=== PATIENT | female | born 1965 | race Caucasian/White ===

== ENCOUNTER 2017-02-26 14:06 | Emergency (ER) | payer OTHER ==
[~2017-02-26] VITALS: Ht 170.2 cm; Wt 65.8 kg
[~2017-02-26 14:06] MED LIST: AMITRIPTYLINE H25 MG PO; DIAZEPAM5 MG PO; ESTER C 500 MG-1 TAB PO; OMEGA-31000 MG PO; OXYCODONE HYDRO15 MG PO; PROBIOTIC FORMU1 CA1 PO; VITAMIN B COMPL1 CAP PO; VITAMIN D35000 IU PO
[2017-02-26 14:34] VITALS: BP 109/74
--- NOTE | 2017-02-26 14:37 | ED GENERAL ADULT ---
History of Present Illness General Chief Complaint: General Adult Stated Complaint: EXPOSURE Source: patient Exam Limitations: no limitations Vital Signs & Intake/Output Vital Signs & Intake/Output Vital Signs Date Time Temp Pulse Resp B/P B/P Pulse O2 O2 Flow FiO2 Mean Ox Delivery Rate 02/26 1434 98.4 88 18 109/74 98 Room Air Allergies Coded Allergies: latex (Mild, ITCHINESS 03/05/16) ceftriaxone (HIVES, FEVER, HOSPITALIZED 12/12/15) Reconcile Medications AMITRIPTYLINE HCL (Amitriptyline HCl) 25 MG TABLET 1 TAB PO QHS ARTHRITIS ( Reported) Ascorbic Acid/Bioflavonoid/C (Dinorah C 500 MG-200 MG-50 MG) (Unknown Strength) TAB 1 TAB PO DAILY SUPPLEMENT (Reported) Cholecalciferol (Vitamin D3) 5,000 IU CAP 1 CAP PO DAILY SUPPLEMENT (Reported ) Diazepam 5 MG TABLET 1-2 TAB PO QPM SLEEP/SPASMS (Reported) Inulin/Lactobacillus Sporoge (Probiotic Formula) 1 CAP CAP 1 CAP PO DAILY SUPPLEMENT (Reported) OMEGA-3 FATTY ACIDS/FISH OIL ([place] 3 1,000 MG Softgel) (Unknown Strength) CAPSULE 1 SGL PO DAILY SUPPLEMENT (Reported) Oxycodone Hydrochloride 15 MG TAB 1 TAB PO QPM PAIN (Reported) Vitamin B Complex 1 EACH CAPSULE 1 CAP PO DAILY SUPPLEMENT (Reported) Triage Note: PT WAS CLEANING A TRASH BIN IN OPERATING ROOM, AND ACCIDENTALLY STUCK LEFT THUMB WITH A CASEY BANDAGE FASTENER. PT WAS WEARING GLOVES. Triage Nurses Notes Reviewed? yes Onset: Just prior to arrival Duration: hour(s): (1) Timing: no prior history Injury Environment: work Severity: mild Severity Numbers: 1 No Modifying Factors: none HPI: Patient is a 51-year-old female unsure of tetanus immunization presenting to the emergency department with chief complaint of needle stick injury prior to arrival. Patient reports that she was cleaning up in and one of the case bandaged clips that his mental poked her left thumb. She bled for a few seconds and then it was controlled with pressure. Denies any pain currently. No numbness or tingling. Was told to come down by her cutting room supervisor for evaluation. Unsure of where the clip came from or if it was contaminated. No numbness or tingling. No history of any infectious disease. Past History Travel History Traveled to [place] past 21 day No Medical History Any Pertinent Medical History? see below for history Respiratory: NONE Musculoskeletal: osteoarthritis, acl TEAR LEFT KNEE, MENISCAL TEAR Blood Disorders: LYME DISEASE Tetanus Vaccine: 07/07/09 Surgical History Surgical History: LEFT KNEE acl RECONSTRUCTION , MENISCECTOMY, DEBRIDEMENT Psychosocial History What is your primary language Bengali Tobacco Use: Current Daily Use Daily Tobacco Use Amount/Type: Smokeless tobacco daily ETOH Use: occasional use Family History Hx Contributory? No Review of Systems Review of Systems Constitutional: Reports: no symptoms. Comments Review of systems: See HPI, All other systems negative. Constitutional, no chills fever or weight loss HEENT: No visual changes no sore throat no congestion Cardiovascular: No chest pain ,palpitation Skin, no jaundice no rashes Respiratory: No dyspnea cough GI: No nausea no vomiting Muscle skeletal: no back pain, no neck pain, Neurologic: No numbness Psych: No stress anxiety Immunology: No splenectomy or history of AIDS Physical Exam Physical Exam General Appearance: well developed/nourished, no apparent distress, alert, awake , comfortable Comments: Well-developed well-nourished no apparent distress. HEENT: Atraumatic, extraocular motion intact Neck: Supple, no lymphadenopathy Back: Nontender Respiratory: No respiratory distress Extremities: No edema, full range of motion, full range of motion of all digits on the upper extremities. Radial pulses are 2+ bilaterally. Skin: Skin over left thumb is nonerythematous, nontender. Unable to visualize any puncture wounds. No active bleeding. No surrounding erythema or edema. Neuro: Alert and oriented x3 Psych: Mood affect normal, normal memory normal judgment. Core Measures ACS in differential dx? No CVA/TIA Diagnosis: No Severe Sepsis Present: No Septic Shock Present: No Progress Differential Diagnoses I considered the following diagnoses in my evaluation of the patient: Needlestick exposure, blood exposure, postexposure prophylaxis, need for tetanus immunization Plan of Care: Orders Procedure Date/time Status HIV EXPOSURE/NEEDLESTICK 02/26 1438 Active HUMAN BETA HCG SCREEN 02/26 1438 Active HEPT C ANTIBODY 02/26 1438 Active HEPT B SURFACE ANTIBODY 02/26 1438 Active GAMMA GLUTAMYL TRANSFERASE 02/26 1438 Active COMPREHENSIVE METABOLIC PANEL 02/26 1438 Active CBC WITHOUT DIFFERENTIAL 02/26 1438 Active TRNSFRASE ASPART AMINO 02/26 1438 Active TRNSFRAS ALANINE AMINO 02/26 1438 Active Current Medications Sig/Fabiola Start time Last Medication Dose Stop Time Status Admin Tetanus/Diphtheria 0.5 ML ONCE ONE 02/26 1500 UNVr Toxoids Adsorbed 02/26 1501 (Decavac) Initial ED EKG: none Comments: Patient given IM tetanus. Prophylaxis for HIV not indicated at this time. pt will call tomorrow for blood test results. Up-to-date with other immunizations besides tenderness. Departure Departure Time of Disposition: 1450 Disposition: HOME OR SELF CARE Condition: Stable Clinical Impression Primary Impression: Needle stick injury Referrals: YARED FERNANDO,DENILSON Leigh (PCP/Family) Additional Instructions: Follow-up with primary care physician U will need repeat blood work in 4-6 weeks. Call for blood work results. Keep area clean and dry. Departure Forms: Customer Survey General Discharge Information Critical Care Note Critical Care Note Critical Care Time: non-applicable
[2017-02-26 15:13] LABS: ABSOLUTE BASOPHIL COUNT 0 /CUMM (0.0-0.2); ABSOLUTE EOSINOPHIL COUNT 0.2 /CUMM (0.0-0.7); ABSOLUTE GRANULOCYTE CT 3.2 /CUMM (1.4-6.5); ABSOLUTE LYMPH COUNT 2.1 /CUMM (1.2-3.4); ABSOLUTE MONOCYTE COUNT 0.7 /CUMM (0.10-0.60); BASOPHIL % 0.6 % (0.0-2.0); EOSINOPHIL % 3.2 % (0-5); GRANULOCYTE % 51.4 % (42.2-75.2); HEMATOCRIT 36.7 % (37-47); MEAN CORPUSCULAR HGB CONC 34.1 G/DL (33.0-37.0); MEAN CORPUSCULAR VOLUME 87.9 FL (81.0-99.0); MEAN PLATELET VOLUME 7.2 FL (7.4-10.4); PLATELET COUNT 288 /CUMM (130-400); RBC DISTRIBUTION WIDTH 12.7 % (11.5-14.5); RED BLOOD CELL CT 4.17 /CUMM (4.20-5.40); WHITE BLOOD CELL COUNT 6.3 /CUMM (4.8-10.8)
== END 2017-02-26 15:05 ==
LOC: ERH 14:06
PROVIDERS: Physician Assistant
DX: S61.032A Puncture wound without foreign body of left thumb without damage to nail, initial encounter (principal); W45.8XXA Other foreign body or object entering through skin, initial encounter; Y93.89 Activity, other specified; Y92.9 Unspecified place or not applicable
CPT/HCPCS: 86803; 87389; 90471

== ENCOUNTER 2017-10-18 14:26 | Emergency (ER) | payer OTHER ==
[~2017-10-18] VITALS: Ht 170.2 cm; Wt 65.8 kg
[2017-10-18 14:35] VITALS: BP 142/92
== END 2017-10-18 15:40 | disposition admitted as inpatient to this hospital (09) ==
LOC: ERH 14:26
DX: M54.2 Cervicalgia (principal); X50.0XXA Overexertion from strenuous movement or load, initial encounter

== ENCOUNTER → 2017-12-30 | Day surgery (SDC) | payer OTHER ==
[~2017-12-30] VITALS: Ht 170.2 cm; Wt 65.8 kg
[~2017-12-30] MED LIST changes: +AMITRIPTYLINE H25 M2 PO; -AMITRIPTYLINE H25 MG PO; +DIAZEPAM5 M1 PO; -DIAZEPAM5 MG PO; +DORYX PO; +OXYCODONE HCL E20 MG PO
--- NOTE | 2017-12-30 10:06 | Operative Report ---
Operative/Inv Procedure Report Surgery Date: 12/30/17 Name of Procedure: 1.C6/7 ACDF with 4webb interbody cage, synthes vectra anterior plate and screws, autograft, DBX 2.Exploration of C5/6 arthrodesis 3.use of intraop fluoroscopy Pre-Operative Diagnosis: C6/7 HNP with stenosis, kyphosis Post-Operative Diagnosis: same Estimated Blood Loss: less than 50ml Surgeon/Powder Worker Tnt: Merlyn FERNANDO,Dino Barnett MD Anesthesia: general endotracheal tube Monitors: neurophysiologic monioting IV Fluids: 1500cc crystalloid Implants: 4webb cage, vectra plate and screws Urine Output: via jolly Drains: med NAY Specimens: C6/7 disc material Complications: none Condition: stable Operative Indication: 52yo woman s/p prior C4/5, C5/6 ACDF now with progessive adjacent segment spondylosis, disc protrusion and prgressive central and foraminal stenosis with intractble symproms despite nonoperataive treatment now presents for anterior decompression and fusion C6/7, exploration of prior ACDF. Operative/Procedure Note Note: Patient was taken the operating room. After appropriate patient identification, neurophysiologic monitoring leads were placed and baseline recordings were obtained. The patient underwent an awake fiberoptic intubation with a Nims tube with the neck in a neutral position. Following intubation. Monitoring was stable. The patient was positioned supine on the operating table with the neck gently extended on a donut and the shoulders retracted downward with tape. Following positioning, monitoring was rechecked and noted to be stable. Patient was given 1 g of IV vanco and 4 mg of IV Decadron in preoperative prophylaxis. A Jolly catheter was sterilely inserted. DVT prophylaxis was utilized throughout the case. Prior surgery was through right anterior neck and preop laryngoscopy showed bilaterally mobile vocal cords. The left ventral neck was widely prepped and draped in usual sterile fashion using Hibiclens solution. A transverse linear skin incision was marked beginning in the midline and extending to the left a proximally 3 cm several fingerbreadths above the clavicle. The C-arm fluoroscope was sterilely draped in the field and we confirmed that the planned incision was overlying the C6 7 interspace. The skin was infiltrated with local anesthetic. Skin incision was made with a 10 blade knife dissection was carried down through the subcutaneous tissue with the Bovie to the platysma muscle. The platysma was elevated and divided. Subplatysmal planes were created rostrally and caudally to facilitate tissue mobilization. The medial aspect of the sternocleidomastoid muscle was identified. The overlying fascia was incised in a rostral caudal fashion. A combination of digital and blunt dissection was used medial to the sternocleidomastoid and lateral to the trachea and esophagus down to the prevertebral fascia. A large traversing external jugular vein was retracted laterally. The carotid sheath was identified and retracted laterally under hand -held retractor. The crossing omohyoid muscle was reflected rostrally. The prevertebral fascia was thickened with scar from the prior surgery. It was incised sharply and swept off the ventral aspect of the vertebral bodies with a peanut. Disc spaces were identified. A small gauge spinal needle was placed superficially within the disc space and a lateral localizing x-ray was obtained and confirmed this to be the correct level of C6/7. With the correct level verified, the disc space was marked with the Bovie and the longus coli muscles were reflected bilaterally. Self-retaining retractors were placed beneath the muscle. Once the retractors were in position, the endotracheal cuff was deflated and slowly reinflated against the retractors to minimize tracheal wall pressure. The interspace of C5/6 was inspected and the arthrodesis was confirmed to be solid with stable anterior hardware. An annulotomy of C6 7 was performed with a 15 blade knife and a superficial discectomy was done with small straight and angled curettes and pituitary rongeurs. The osteophytes were removed with a Leksell rongeur and the bone saved for subsequent arthrodesis to the back table. Jetmore pins were placed in the midpoint of the C6 and C7 vertebral bodies in the disc space was gently distracted under direct and fluoroscopic guidance. Following distraction of the disc space, neurophysiologic monitoring was rechecked and noted to be stable. Discectomy at C6 7 was completed using combination of small straight and angled curettes and pituitary rongeurs to the PLL. The posterior longitudinal ligament was sequentially divided and removed with a 2 mm Kerrison punch until an excellent decompression of the underlying thecal sac was accomplished from proximal foramen to proximal foramen. Once removal of all the disc material, the dural sac appeared nicely decompressed. Foraminotomies were performed bilat with kerrisons to ensure the C7 roots were well decompressed bilaterally. Once the decompression was completed, meticulous hemostasis was achieved using Surgifoam in the epidural space and a cottonoid idalia. All cartilaginous endplates were removed from C6 and C7 using combination of curettes and the Midas Koby drill to prepare them for arthrodesis. Following the decompression, neurophysiologic monitoring was rechecked and noted to be stable. We then proceeded to arthrodesis and placement of the instrumentation. Opry trials, a 7 mm 4webb cage was selected and provisionally placed in the disc space. A lateral fluoroscopic x-ray showed excellent position of the interbody cage and good fit. We then filled the cage with demineralized bone matrix and morselized autograft from the osteophytectomy and gently tamped the cage into the C6 7 disc space under direct and fluoroscopic guidance. Once the cage was in position, we proceeded with placement of the anterior plate and screws. The Jetmore retractor was released compressing the cage between the respective vertebral bodies in the Jetmore pins were removed. A small amount of bone bleeding was easily controlled with bone wax. A 12mm vectra plate was selected and provisionally placed with plate holding pin. The plate was then fixed to the C6 and C7 vertebral bodies by placing screws after piercing the bone with an awl and using self drilling, self tapping screws with 3 16mm screws and a single 14mm screw in the left C6 position to avoid prior instrumentation. The screws were finally tightened applying the locking mechanism at locations. Final AP and lateral x-rays were obtained and saved and showed excellent position of the interbody cage and instrumentation. The retractors were removed. Hand-held retractors were then placed back into the wound which was inspected and meticulous hemostasis is achieved prior to wound closure. A medium NAY drain was placed into the wound and secured to the skin with a 2-0 nylon suture. The platysma muscle was reapproximated with interrupted 3-0 Vicryl suture. Skin was closed in layers with interrupted 3-0 Vicryl suture in the dermis and a running 4-0 Vicryl subcutaneous stitch in the skin. The wound was cleaned and dried. Steri-Strips and a sterile occlusive dressing was placed. The patient was placed in a soft cervical collar. She was awakened in the operating room, extubated, and taken to PACU in stable condition. She was noted to be moving all 4 extremities at the completion of the case. All sponge needle and instrument counts are correct at the completion of procedure 3. Neurophysiologic monitoring was stable throughout the case. Findings: endplate spurring particularly off rostral C7 on the right with bilat foraminal stenosis Discharge Disposition: PACU
--- NOTE | 2017-12-30 10:13 | Operative Report ---
Operative/Inv Procedure Report Surgery Date: 12/30/17 Name of Procedure: C6 7 anterior cervical discectomy and fusion use of Synthes anterior plating system use of 4 web intervertebral biomechanical device use of autograft use of allograft use of fluoroscopic guidance C5 6 exploration of fusion Pre-Operative Diagnosis: Cervical spondylosis Post-Operative Diagnosis: Same Estimated Blood Loss: less than 50ml Surgeon/Topographical Engineer: Merlyn Owens MD,Megha Ledesma Anesthesia: general endotracheal tube Operative/Procedure Note Note: After the successful administration of general endotracheal anesthesia all lines tubes and monitors were placed by anesthesia team the patient positioned supine with head gently extended transverse rolls placed in her shoulders shoulders were taped down to facilitate radial graft exposure the anterior cervical spine. We used the fluoroscope to plan a skin incision the left anterior neck over the C6 7 disc space the patient was then prepped and draped in usual standard fashion, 10 mL of Marcaine was infiltrated subcutaneous tissues #15 blade was used used to incise the skin. This was deepened Bovie cautery through the platysma and a sharp dissection was carried down medial to the carotid sheath lateral to the trachea and esophagus. A lipless retractor was used to retract the esophagus and trachea medially the deep cervical fascia identified and divided a 6 spinal needles placed and C6 7 disc space and the fluoroscope was used to confirm the level. After levels confirmed we elevated longus coli bilaterally, where visualize the inferior aspect of the old C5 6 hardware this was far enough away we felt, We Could Place Bayfield pins and the plate. We then incised the annulus #11 blade I used Leksell rongeur to remove any anterior osteophytes the bodies of C6 and C7 this was saved for autograft. We placed [place] pins the bodies of C6 and C7 provided gentle in-line distraction perform a total discectomy at with combination of pituitaries curettes and Kerrison. We then used a high-speed drill to drill the posterior osteophytes saving the bone for autograft we elevated the PLL and resected with Kerrison punch. We were then able to visualize the thecal sac and the shoulders of the nerve root all neural structures were thoroughly decompressed as noted to CSF leak motors and sensors were stable. The cartilaginous and bony endplates remove the high-speed drill and curettes. We trialed a 7 mm spacer this the appropriate size space was prepacked morselized autograft and D was bone matrix putty impacted under fluoroscopic guidance motors and sensors were stable Bayfield pins removed and the holes waxed with bone wax. We then placed a 12 mm plate secured in place with 16 mm screws circumferentially except for the left-sided C6 pin this 60 mm was too long we then placed a 14 mm rescue pin and esophagus hitting the prior hardware. Under fluoroscopic guidance confirmed is no abnormal motion at C5 6 level. The intrinsic locking mechanisms were locked was copiously irrigated bacitracin irrigation through separate stab incision #7 round NAY drain was left was retraction removed and the wound was closed in layers using 30 Vicryls for the platysma and for deep dermis and skin was closed with a subcuticular 40. A dry sterile dressing applied at end the case all needle counts sponge and instrument correct the patient to recovery in stable condition.
--- NOTE | 2017-12-31 14:00 | RADIOLOGY REPORT ---
EXAMINATION: CR CERVICAL SPINE/INTRAOPERATIVE FLUOROSCOPY CLINICAL INDICATION: ACD with fusion C6-C7. COMPARISON: C-spine films dated 12/12/2017. TECHNIQUE/FINDINGS: Fluoroscopic equipment was dedicated to the operating room for the performance of an intraoperative procedure. Several (6) spot films were acquired and are archived in PACS. Please refer to operative notes for procedural detail. FLUOROSCOPY TIME: 0.1 minutes. IMPRESSION: Administrative dictation for intraoperative fluoroscopy and image archiving in PACS. Please refer to operative notes for details.
== END ==
LOC: STS 01:45
DX: M47.892 Other spondylosis, cervical region (principal); M50.123 Cervical disc disorder at C6-C7 level with radiculopathy; M40.209 Unspecified kyphosis, site unspecified; M43.22 Fusion of spine, cervical region
CPT/HCPCS: 72040; 87086; C1713; C9399; J0131; J2250; J3370; J7040; J7060

== ENCOUNTER 2018-04-05 13:22 | Emergency (ER) | payer OTHER ==
[~2018-04-05] VITALS: Ht 170.2 cm; Wt 59.9 kg
--- NOTE | 2018-04-05 13:23 | ED CARDIAC/CP/PALPITATIONS ---
History of Present Illness General Chief Complaint: Chest Pain Stated Complaint: BIBA FOR CP Source: patient, old records Exam Limitations: no limitations Vital Signs & Intake/Output Vital Signs & Intake/Output Vital Signs Date Time Temp Pulse Resp B/P B/P Pulse O2 O2 Flow FiO2 Mean Ox Delivery Rate 04/05 1808 98.7 04/05 1720 92 110/74 04/05 1720 92 16 110/74 99 Room Air 04/05 1609 90 16 112/74 99 Room Air 04/05 1407 Room Air 04/05 1340 98.4 129 16 133/90 100 Room Air Allergies Coded Allergies: latex (Mild, ITCHINESS 03/05/16) ceftriaxone (HIVES, FEVER, HOSPITALIZED 12/12/15) hydromorphone (From DILAUDID) (NAUSEA vomiting 12/26/17) Reconcile Medications Amitriptyline HCl 25 MG TABLET 1 TAB PO QHS ARTHRITIS (Reported) Cider Vinegar (Apple Cider Vinegar) (Unknown Strength) TABLET (Unknown Dose) PO DAILY SUPPLEMENT (Reported) Cyanocobalamin (Vitamin B-12) (Unknown Strength) TABLET (Unknown Dose) PO DAILY SUPPLEMENT (Reported) Flaxseed Oil (Flax Oil) (Unknown Strength) CAPSULE (Unknown Dose) PO DAILY SUPPLEMENT (Reported) Magnesium Oxide (Magnesium) (Unknown Strength) CAPSULE (Unknown Dose) PO DAILY SUPPLEMENT (Reported) [place] Extract (Unknown Strength) CAPSULE (Unknown Dose) PO DAILY SUPPLEMENT (Reported) Oxycodone HCl 15 MG TABLET 1 TAB PO Q6H PRN PAIN (Reported) Triage Nurses Notes Reviewed? yes HPI: 52F PMH cervical spinal fusion surgery in December 2017, left leg vascular procedure (unknown) presenting with multiple complaints. For the past several weeks has felt fatigued and weak. For the past week she feels generally ill and toxic. She notes left leg paresthesias that have been constant for a week or two that worsening when she presses on her LLQ. Today, she went for a walk and felt well. After, she had sudden sharp left sided chest pain radiating to the left arm associated with palpitations and a sense of panic. She has no cardiac history. She denies smoking, fever, chills, headache, sore throat, vision changes, SOB, abdominal pain, diarrhea, dysuria. Her strength and gait are intact. Past History Travel History Traveled to [place] past 21 day No Medical History Any Pertinent Medical History? see below for history Neurological: NONE EENT: NONE Cardiovascular: NONE Respiratory: NONE Gastrointestinal: NONE Hepatic: NONE Renal: NONE Musculoskeletal: osteoarthritis, acl TEAR LEFT KNEE, MENISCAL TEAR Psychiatric: NONE Endocrine: NONE Blood Disorders: LYME DISEASE Tetanus Vaccine: 02/26/17 Surgical History Surgical History: LEFT KNEE acl RECONSTRUCTION , MENISCECTOMY, DEBRIDEMENT Psychosocial History What is your primary language Icelandic Family History Hx Contributory? No Review of Systems Review of Systems Constitutional: Reports: no symptoms. EENTM: Reports: no symptoms. Respiratory: Reports: no symptoms. Cardiovascular: Reports: no symptoms. GI: Reports: no symptoms. Genitourinary: Reports: no symptoms. Musculoskeletal: Reports: no symptoms. Skin: Reports: no symptoms. Neurological/Psychological: Reports: no symptoms. Hematologic/Endocrine: Reports: no symptoms. Immunologic/Allergic: Reports: no symptoms. All Other Systems: Reviewed and Negative Physical Exam Physical Exam General Appearance: well developed/nourished, no apparent distress, anxious Head: atraumatic, normal appearance Eyes: Bilateral: normal appearance. Ears, Nose, Throat: normal pharynx, hearing grossly normal Neck: normal inspection, supple, full range of motion Respiratory: normal breath sounds, no respiratory distress Cardiovascular: regular rate/rhythm Gastrointestinal: soft, non-tender Back: normal inspection, normal range of motion Extremities: normal inspection, normal range of motion Neurologic/Psych: no motor/sensory deficits, awake, alert, oriented x 3, normal mood/affect Skin: intact, normal color, warm/dry Core Measures ACS in differential dx? Yes No ASA d/t already taken CVA/TIA Diagnosis No Sepsis Present: No Sepsis Focused Exam Completed? No Progress Differential Diagnosis: AMI, aortic dissection, atrial fibrillation, cholecystitis, CHF/pulm edema, costochondritis, hyperkalemia, hypovolemia, hyperthyroid, hyperventilation, intracranial hemorrhage, musculoskeletal pain, myocarditis, pancreatitis, pericarditis, pneumonia, pneumothorax, PSVT, pulmonary embolism, PUD/GERD, PVCs/PACs, respiratory failure, rib fracture, sepsis, unstable angina, V-fib/V-Tach, WPW syndrome Plan of Care: Orders Procedure Date/time Status TROPONIN LEVEL 04/05 1730 Active EKG 04/05 1730 Active Add-on Test (ER Only) 04/05 1532 Active URINE 04/05 1355 Complete URINALYSIS 04/05 1323 Complete TROPONIN LEVEL 04/05 1323 Complete D-DIMER 04/05 1323 Complete COMPREHENSIVE METABOLIC PANEL 04/05 1323 Complete CBC WITHOUT DIFFERENTIAL 04/05 132 Complete EKG 04/05 1322 Active Laboratory Tests 04/05/18 1728: Troponin I Pending 04/05/18 1435: Anion Gap 10, Estimated GFR > 60, BUN/Creatinine Ratio 15.7, Glucose 111 H, Calcium 9.5, Total Bilirubin 0.3, AST 31, ALT 33, Alkaline Phosphatase 67, Troponin I < 0.01, Total Protein 6.7, Albumin 4.2, Globulin 2.5, Albumin/ Globulin Ratio 1.7, D-Dimer High Sensitivty < 200 04/05/18 1355: CBC w Diff NO MAN DIFF REQ, RBC 4.71, MCV 87.1, MCH 29.7, MCHC 34.1, RDW 13.2, MPV 7.9, Gran % 71.1, Lymphocytes % 19.0 L, Monocytes % 8.3, Eosinophils % 1.2, Basophils % 0.4, Absolute Granulocytes 4.8, Absolute Lymphocytes 1.3, Absolute Monocytes 0.6, Absolute Eosinophils 0.1, Absolute Basophils 0, Urine Color STRAW , Urine Clarity CLEAR, Urine pH 6.5, Ur Specific [place] <= 1.005, Urine Protein NEG, Urine Ketones NEG, Urine Nitrite NEG, Urine Bilirubin NEG, Urine Urobilinogen 0.2, Ur Leukocyte Esterase NEG, Ur Microscopic EXAM NOT REQUIRED, Urine Hemoglobin NEG, Urine Glucose NEG, Urine Test NEGATIVE Diagnostic Imaging: Viewed by Me: CT Scan. Discussed w/RAD: CT Scan. Radiology Impression: PATIENT: FELICE DAVIDSON PRESENT AGE: 52 PATIENT ACCOUNT NO: [id number] : 67 LOCATION: [facility] ORDERING PHYSICIAN: Suzy Hubbard MD SERVICE DATE: 04/05/18 EXAM TYPE : CAT - CT HEAD W IV CONTRAST EXAMINATION: CT HEAD WITH CONTRAST CLINICAL INFORMATION: History of brain cyst with new left lower extremity paresthesia COMPARISON: None TECHNIQUE: Contiguous axial imaging was performed from the skull base to vertex following the administration of 125 mL of Optiray 350 intravenous contrast. DLP: 620 mGy-cm FINDINGS: There is no evidence of acute intracranial hemorrhage or territorial infarction. No abnormal mass effect or midline shift is seen. Boyle to white matter differentiation is well preserved. No extra-axial fluid collections are identified. There is no abnormal enhancement. The ventricles are normal in size. There is no abnormal attenuation within the brain parenchyma. The osseous structures and soft tissues are normal. The mastoid air cells and visualized portions of the paranasal sinuses are well aerated. IMPRESSION: No acute intracranial findings. DICTATED BY: Shweta Peres MD DATE/TIME DICTATED:04/05/181749 SALES REPRESENTATIVE CONSULTANT:GIANCARLO DATE/TIME TRANSCRIBED:04/05/181749 CONFIDENTIAL, DO NOT COPY WITHOUT APPROPRIATE AUTHORIZATION. <Electronically signed in Other Vendor System> SIGNED BY: Shweta Peres MD 04/05/181756, PATIENT: FELICE DAVIDSON PRESENT AGE: 52 PATIENT ACCOUNT NO: [id number] : 67 LOCATION: [facility] ORDERING PHYSICIAN: Suzy Hubbard MD SERVICE DATE: 04/05/18 EXAM TYPE : CAT - CT RUNOFF ANGIOGRAM EXAMINATION: CT ANGIOGRAPHY WITH RUNOFF CLINICAL INFORMATION: Ischemic left leg with new paresthesias. COMPARISON: None TECHNIQUE : Volume acquisition CT of the abdomen, pelvis and bilateral lower extremities was performed both with and without IV contrast. For the contrast-enhanced portion of the exam a total of 125 mL of Optiray 350 was utilized. Images were evaluated on an independent dedicated 3-D workstation and 3-D images were reconstructed with concurrent radiologist supervision and subsequently interpreted. DLP: 753\H\ \N\mGy-cm FINDINGS: VASCULAR FINDINGS: Aorta and Its Branches: The visualized descending thoracic aorta appears normal. The abdominal aorta demonstrates some minimal plaquing distally but there is no stenosis, dissection or aneurysm seen. The celiac SMA and BRIAN are all widely patent. There are 2 renal arteries on the right and a single renal artery on the left which are patent. The common iliac arteries appear normal aside from some minimal calcific plaque on the right distally. No common iliac stenoses are present. The iliac bifurcations are patent. Both internal iliacs are widely patent. External iliac arteries are free of disease. RUNOFF: Right: The profunda femoris is widely patent. The SFA is widely patent. The popliteal artery appears normal. There is a high takeoff of the posterior tibial artery at the level of the knee joint. There is a common trunk to the anterior tibial and peroneal artery which appears normal. All 3 runoff vessels are widely patent to the foot. Left: The left profunda femoris is widely patent. The left SFA is widely patent. There is some minimal fusiform dilatation of the left popliteal artery which measures a maximum of about a centimeter in size. The trifurcation is patent and all 3 runoff vessels are widely patent to the foot. VENOUS: The IVC is of normal caliber not adequately opacified to comment upon. The iliac veins are of normal caliber. There is a single right renal vein present. There is a retroaortic left renal vein present. The portal venous system is only faintly opacified. The hepatic veins cannot be commented upon. NONVASCULAR FINDINGS: The lung bases appear normal without masses infiltrates or pleural effusions. The liver, gallbladder, bile ducts, pancreas and spleen are unremarkable. The adrenal glands appear normal. Both kidneys appear normal. No retroperitoneal adenopathy is seen. The bladder is unremarkable. A retroflexed uterus is present. No abnormal pelvic mass is seen. No bony destructive lesions are seen. The abdominal wall appears normal. IMPRESSION: Vascular supply to both lower extremities is not compromised in the least and appears rather unremarkable. A significant abnormality is not detected. DICTATED BY: Omar Valentine MD DATE/ TIME DICTATED:04/05/181734 SALES REPRESENTATIVE CONSULTANT:GIANCARLO DATE/TIME TRANSCRIBED: 04/05/181734 CONFIDENTIAL, DO NOT COPY WITHOUT APPROPRIATE AUTHORIZATION. < Electronically signed in Other Vendor System> SIGNED BY: Omar Valentine MD 04/05/18 9976 Initial ED EKG: normal sinus rhythm, no ST T wave changes Departure Departure Disposition: HOME OR SELF CARE Condition: Stable Clinical Impression Primary Impression: Paresthesia of left leg Secondary Impressions: Chest pain at rest Referrals: Yoan FERNANDO,Hemal Leigh (PCP/Family) Bill Alvarado MD, MD,Sally Mendez Additional Instructions: Follow up with your PCP and with neurology. Stand from a lying or sitting position slowly. Drink plenty of water. Return to ER if new or worsening symptoms. Departure Forms: Customer Survey General Discharge Information Critical Care Note Critical Care Note Critical Care Time: non-applicable
[2018-04-05 14:15] LABS: ABSOLUTE BASOPHIL COUNT 0 /CUMM (0.0-0.2); ABSOLUTE EOSINOPHIL COUNT 0.1 /CUMM (0.0-0.7); ABSOLUTE GRANULOCYTE CT 4.8 /CUMM (1.4-6.5); ABSOLUTE LYMPH COUNT 1.3 /CUMM (1.2-3.4); ABSOLUTE MONOCYTE COUNT 0.6 /CUMM (0.10-0.60); BASOPHIL % 0.4 % (0.0-2.0); EOSINOPHIL % 1.2 % (0-5); GRANULOCYTE % 71.1 % (42.2-75.2); MEAN CORPUSCULAR HGB 29.7 PG (27.0-31.0); MEAN CORPUSCULAR HGB CONC 34.1 G/DL (33.0-37.0); MEAN CORPUSCULAR VOLUME 87.1 FL (81.0-99.0); MEAN PLATELET VOLUME 7.9 FL (7.4-10.4); PLATELET COUNT 315 /CUMM (130-400); RBC DISTRIBUTION WIDTH 13.2 % (11.5-14.5); RED BLOOD CELL CT 4.71 /CUMM (4.20-5.40); WHITE BLOOD CELL COUNT 6.7 /CUMM (4.8-10.8)
[2018-04-05] MEDS ORDERED: OXYCODONE HCL15 M1 PO (14:21)
[2018-04-05] MEDS ORDERED: FLAX OIL1000 M1 PO (14:22)
[2018-04-05] MEDS ORDERED: OLIVE LEAF EXT250 MG PO (14:22)
[2018-04-05] MEDS ORDERED: VITAMIN B-121000 MC3 PO (14:23)
[2018-04-05] MEDS ORDERED: MAGNESIUM400 M1 PO (14:23)
[2018-04-05] MEDS ORDERED: APPLE CIDER VI300 MG PO (14:23)
[2018-04-05 17:20] VITALS: BP 110/74
--- NOTE | 2018-04-05 17:57 | CT SCAN REPORT ---
EXAMINATION: CT HEAD WITH CONTRAST CLINICAL INFORMATION: History of brain cyst with new left lower extremity paresthesia COMPARISON: None TECHNIQUE: Contiguous axial imaging was performed from the skull base to vertex following the administration of 125 mL of Optiray 350 intravenous contrast. DLP: 620 mGy-cm FINDINGS: There is no evidence of acute intracranial hemorrhage or territorial infarction. No abnormal mass effect or midline shift is seen. Boyle to white matter differentiation is well preserved. No extra-axial fluid collections are identified. There is no abnormal enhancement. The ventricles are normal in size. There is no abnormal attenuation within the brain parenchyma. The osseous structures and soft tissues are normal. The mastoid air cells and visualized portions of the paranasal sinuses are well aerated. IMPRESSION: No acute intracranial findings.
--- NOTE | 2018-04-05 17:58 | CT SCAN REPORT ---
EXAMINATION: CT ANGIOGRAPHY WITH RUNOFF CLINICAL INFORMATION: Ischemic left leg with new paresthesias. COMPARISON: None TECHNIQUE: Volume acquisition CT of the abdomen, pelvis and bilateral lower extremities was performed both with and without IV contrast. For the contrast-enhanced portion of the exam a total of 125 mL of Optiray 350 was utilized. Images were evaluated on an independent dedicated 3-D workstation and 3-D images were reconstructed with concurrent radiologist supervision and subsequently interpreted. DLP: 753\H\ \N\mGy-cm FINDINGS: VASCULAR FINDINGS: Aorta and Its Branches: The visualized descending thoracic aorta appears normal. The abdominal aorta demonstrates some minimal plaquing distally but there is no stenosis, dissection or aneurysm seen. The celiac SMA and BRIAN are all widely patent. There are 2 renal arteries on the right and a single renal artery on the left which are patent. The common iliac arteries appear normal aside from some minimal calcific plaque on the right distally. No common iliac stenoses are present. The iliac bifurcations are patent. Both internal iliacs are widely patent. External iliac arteries are free of disease. RUNOFF: Right: The profunda femoris is widely patent. The SFA is widely patent. The popliteal artery appears normal. There is a high takeoff of the posterior tibial artery at the level of the knee joint. There is a common trunk to the anterior tibial and peroneal artery which appears normal. All 3 runoff vessels are widely patent to the foot. Left: The left profunda femoris is widely patent. The left SFA is widely patent. There is some minimal fusiform dilatation of the left popliteal artery which measures a maximum of about a centimeter in size. The trifurcation is patent and all 3 runoff vessels are widely patent to the foot. VENOUS: The IVC is of normal caliber not adequately opacified to comment upon. The iliac veins are of normal caliber. There is a single right renal vein present. There is a retroaortic left renal vein present. The portal venous system is only faintly opacified. The hepatic veins cannot be commented upon. NONVASCULAR FINDINGS: The lung bases appear normal without masses infiltrates or pleural effusions. The liver, gallbladder, bile ducts, pancreas and spleen are unremarkable. The adrenal glands appear normal. Both kidneys appear normal. No retroperitoneal adenopathy is seen. The bladder is unremarkable. A retroflexed uterus is present. No abnormal pelvic mass is seen. No bony destructive lesions are seen. The abdominal wall appears normal. IMPRESSION: Vascular supply to both lower extremities is not compromised in the least and appears rather unremarkable. A significant abnormality is not detected.
== END 2018-04-05 18:23 ==
LOC: ERH 13:22
PROVIDERS: Internal Medicine
DX: R20.2 Paresthesia of skin (principal); R07.9 Chest pain, unspecified
CPT/HCPCS: 81003; 81025; 93005; 93010